=== PATIENT | male | born 2000 | race Caucasian/White ===

== ENCOUNTER 2023-08-12 21:17 | Emergency (ER) | payer OTHER ==
[~2023-08-12] VITALS: Ht 177.8 cm; Wt 61.2 kg
[2023-08-12 21:59] LABS: BASO % 0.7 % (0.0-1.0); EOS # 0.1 10^3/uL (0.0-0.5); EOS % 1.1 % (0.0-3.0); HEMATOCRIT 38.5 % (42.0-52.0); HEMOGLOBIN 13.5 g/dl (13.5-17.5); LYMPH # 2.1 10^3/uL (1.5-5.0); LYMPH % 37.5 % (24.0-44.0); MEAN CORPUSCULAR HEMOGLOBIN 31.7 pg (27.0-33.0); MEAN CORPUSCULAR HGB CONC 35.1 g/dl (32.0-36.5); MEAN CORPUSCULAR VOLUME 90.4 fl (80.0-96.0); MONO # 0.3 10^3/uL (0.0-0.8); MONO % 5.5 % (2.0-8.0); NEUTROPHILS # 3.1 10^3/uL (1.5-8.5); PLATELET COUNT, AUTOMATED 169 10^3/uL (150-450); RED BLOOD COUNT 4.26 10^6/uL (4.30-6.10); WHITE BLOOD COUNT 5.7 10^3/uL (4.0-10.0)
[2023-08-12 22:22] LABS: LIPASE 31 U/L (12-53)
[2023-08-12 22:24] LABS: ALBUMIN 4.3 G/DL (3.2-5.2); ALKALINE PHOSPHATASE 64 U/L (46-116); ALT/SGPT 23 U/L (7.0-40); AST/SGOT 19 U/L (<34); BILIRUBIN,DIRECT 0.3 MG/DL (<0.4); BILIRUBIN,TOTAL 0.7 MG/DL (0.3-1.2); BLOOD UREA NITROGEN 16 MG/DL (9-23); CALCIUM LEVEL 9.5 MG/DL (8.5-10.1); CARBON DIOXIDE LEVEL 30 MMOL/L (20-31); CHLORIDE LEVEL 103 MMOL/L (98-107); GLOMERULAR FILTRATION RATE > 60.0 (>60); GLUCOSE, FASTING 75 MG/DL (60-100); POTASSIUM SERUM 3.6 MMOL/L (3.5-5.1); SODIUM LEVEL 137 MMOL/L (136-145); TOTAL PROTEIN 7.3 G/DL (5.7-8.2)
[2023-08-13] MEDS: GASTROGRAFIN SOLUTION 30ML PO SCH (06:47)
[2023-08-13] MEDS: NS 1,000 ML IV ONE (06:47)
[2023-08-13] MEDS ORDERED: ISOVUE-370 76% 100ML VIAL As Ordered ONE (08:46)
[2023-08-13] MEDS ORDERED: DICY-61 PO (09:30)
[2023-08-13 09:53] VITALS: O2SAT 99
[2023-08-13 10:09] VITALS: BP 116/69; TEMP 97.6
== END 2023-08-13 10:13 | disposition home or self-care (01) ==
LOC: EDBD 21:17 → M ED 08-13 04:11
DX: R10.9 Unspecified abdominal pain (principal); Z79.891 Long term (current) use of opiate analgesic
CPT/HCPCS: 74177; 80048; 80076; 83690; 85025; 96360; 96361; 99284; Q9963; Q9967